=== PATIENT | female | born 1985 | race African-American/Black ===

== ENCOUNTER 2016-08-24 15:47 | Emergency (ER) | payer MEDICAID ==
[~2016-08-24] VITALS: Ht 160 cm; Wt 75.0 kg
[~2016-08-24 15:47] MED LIST: MOTRIN 600600 MG/TAB PO; NO HOME MEDICATIONS; PERCOCET 325 MG1 TA2 PO; ZOFRAN 4MG T4 MG/TAB PO
[2016-08-24 15:48] VITALS: BP 138/84; TEMP 98.1
[2016-08-24 16:23] LABS: BASO # 0.1 (0.0-0.2); BASO % 0.7 % (0.0-2.0); EOS # 0.1 (0.0-0.7); EOS % 1.3 % (0-4.0); GRAN # 5.9 (1.4-6.5); GRAN % 64.1 % (42.2-75.2); HEMOGLOBIN 12.7 g/dl (12.5-16.0); LYMPH # 2.5 (1.2-3.4); LYMPH % 26.9 % (20.0-51.0); MEAN CELL VOLUME 89 fl (80.0-100.0); MEAN CORPUSCULAR HEMOGLOBIN 31 pg (27.0-31.0); MEAN CORPUSCULAR HGB CONC 35 g/dl (33.0-37.0); MEAN PLATELET VOLUME 9.9 fl (7.4-10.4); MONO # 0.6 (0.1-0.6); MONO % 6.6 % (1.7-9.3); PLATELET COUNT 266 K/mm3 (130-400); RED BLOOD COUNT 4.08 M/mm3 (4.10-5.30); WHITE BLOOD COUNT 9.1 K/mm3 (4.8-10.8)
[2016-08-24 16:29] LABS: HEMATOCRIT 36.3 % (37.0-47.0)
[2016-08-24 16:38] LABS: CALCIUM 9.3 mg/dL (8.4-10.2); CREATININE, serum 0.72 mg/dL (0.52-1.25); POTASSIUM 3.7 mmol/L (3.4-5.0)
[2016-08-24 17:40] VITALS: PULSE 70
== END 2016-08-24 17:40 | disposition home or self-care (01) ==
LOC: COL.ER 15:47
PROVIDERS: Physician Assistant
DX: O20.0 Threatened abortion (principal); Z3A.01 Less than 8 weeks gestation of pregnancy; O99.341 Other mental disorders complicating pregnancy, first trimester; F41.9 Anxiety disorder, unspecified; F32.9 Major depressive disorder, single episode, unspecified; F90.9 Attention-deficit hyperactivity disorder, unspecified type
CPT/HCPCS: J7030

== ENCOUNTER 2016-09-24 17:23 | Emergency (ER) | payer MEDICAID ==
[~2016-09-24] VITALS: Ht 160 cm; Wt 77.3 kg
[2016-09-24 17:46] VITALS: TEMP 98
[2016-09-24] MEDS ORDERED: ZOFRAN8 MG PO (17:48)
[2016-09-24] MEDS ORDERED: PRENATAL (17:48)
[2016-09-24] MEDS ORDERED: REGLAN 10MG10 MG/TAB PO (20:11)
[2016-09-24 20:29] VITALS: BP 116/61; PULSE 62
== END 2016-09-24 20:29 | disposition home or self-care (01) ==
LOC: COL.ER 17:23
DX: O99.351 Diseases of the nervous system complicating pregnancy, first trimester (principal); G43.909 Migraine, unspecified, not intractable, without status migrainosus; Z3A.11 11 weeks gestation of pregnancy
CPT/HCPCS: J1200; J2765; J7120

== ENCOUNTER 2016-10-06 16:36 | Emergency (ER) | payer MEDICAID ==
[~2016-10-06] VITALS: Ht 160 cm; Wt 77.3 kg
[~2016-10-06 16:36] MED LIST changes: +PRENATAL; +REGLAN 10MG10 MG/TAB PO; +ZOFRAN8 MG PO
[2016-10-06 16:37] VITALS: BP 120/62; TEMP 98
[2016-10-06 17:29] LABS: PH 6 (5-8); SQUAMOUS EPITHELIAL 0-2 /hpf; URINE APPEARANCE Clear; URINE BACTERIA None Seen /hpf; URINE BILIRUBIN Negative (NEGATIVE); URINE BLOOD Negative (NEGATIVE); URINE COLOR Yellow; URINE GLUCOSE Negative (NEGATIVE); URINE KETONE Trace (NEGATIVE); URINE RBC 0-2 /hpf; URINE WBC 0-2 /hpf
[2016-10-06] MEDS ORDERED: PHENERGAN 25 TA25 MG PO (17:33)
[2016-10-06 19:40] VITALS: PULSE 58
== END 2016-10-06 19:44 | disposition home or self-care (01) ==
LOC: COL.ER 16:36
PROVIDERS: Emergency Medicine
DX: O21.0 Mild hyperemesis gravidarum (principal); Z3A.13 13 weeks gestation of pregnancy
CPT/HCPCS: J2550; J7030

== ENCOUNTER 2016-11-24 14:53 | Emergency (ER) | payer MEDICAID ==
[~2016-11-24] VITALS: Ht 160 cm; Wt 77.3 kg
[~2016-11-24 14:53] MED LIST changes: +PHENERGAN 25 TA25 MG PO
[2016-11-24 14:56] VITALS: TEMP 897.7
[2016-11-24 15:41] LABS: BASO % 0.3 % (0.0-2.0); EOS # 0.1 (0.0-0.7); EOS % 0.5 % (0-4.0); GRAN # 8.6 (1.4-6.5); GRAN % 74.5 % (42.2-75.2); LYMPH # 2.3 (1.2-3.4); LYMPH % 19.9 % (20.0-51.0); MEAN CELL VOLUME 90 fl (80.0-100.0); MEAN CORPUSCULAR HGB CONC 35 g/dl (33.0-37.0); MEAN PLATELET VOLUME 10.2 fl (7.4-10.4); MONO # 0.5 (0.1-0.6); MONO % 4.4 % (1.7-9.3); PLATELET COUNT 256 K/mm3 (130-400); RED BLOOD COUNT 3.55 M/mm3 (4.10-5.30); REDCELL DISTRIBUTION WIDTH-CV 12.8 % (11.5-14.5); WHITE BLOOD COUNT 11.5 K/mm3 (4.8-10.8)
[2016-11-24 15:44] LABS: PH 5 (5-8); URINE APPEARANCE Hazy; URINE BACTERIA Rare /hpf; URINE BILIRUBIN Negative (NEGATIVE); URINE BLOOD Negative (NEGATIVE); URINE COLOR Yellow; URINE GLUCOSE Negative (NEGATIVE); URINE KETONE 2+ (NEGATIVE); URINE RBC 0-2 /hpf; URINE UROBILINOGEN Negative (NEGATIVE); URINE WBC 0-2 /hpf
[2016-11-24 15:44] LABS: HEMATOCRIT 32.1 % (37.0-47.0); HEMOGLOBIN 11.2 g/dl (12.5-16.0); MEAN CORPUSCULAR HEMOGLOBIN 32 pg (27.0-31.0)
[2016-11-24 15:48] LABS: ADJUSTED CALCIUM 9.3 mg/dL (8.4-10.2); ALBUMIN 3.9 gm/dL (3.5-5.0); BILIRUBIN,TOTAL 0.3 mg/dL (0.0-1.0); CALCIUM 9.2 mg/dL (8.4-10.2); CREATININE, serum 0.63 mg/dL (0.52-1.25); POTASSIUM 3.7 mmol/L (3.4-5.0); TOTAL PROTEIN 7.2 gm/dL (6.4-8.2)
[2016-11-24] MEDS ORDERED: PHENERGAN 25 TA25 MG PO (17:27)
[2016-11-24 17:38] VITALS: BP 128/60; PULSE 74
== END 2016-11-24 17:39 | disposition home or self-care (01) ==
LOC: COL.ER 14:53
PROVIDERS: Emergency Medicine
DX: O21.9 Vomiting of pregnancy, unspecified (principal); Z3A.20 20 weeks gestation of pregnancy
CPT/HCPCS: J1200; J2405; J2550; J7030

== ENCOUNTER 2017-02-18 14:46 | Inpatient (IN) | payer MEDICAID ==
[~2017-02-18] VITALS: Ht 162.6 cm; Wt 84.1 kg
[2017-04-03] MEDS ORDERED: ACTIGALL 300MG300 MG PO (13:52)
[2017-04-03] MEDS ORDERED: ATARAX50 MG PO (13:53)
[2017-04-03] MEDS ORDERED: PRILOSEC 20MG20 MG PO (13:53)
[2017-04-03] MEDS ORDERED: LEXAPRO 10MG10 MG PO (13:53)
[2017-04-09] VITALS (26 sets, daily range): BP systolic 89–144; BP diastolic 50–88; PULSE 55–104; TEMP 97.3–98.2
[2017-04-09] MEDS ORDERED: LEXAPRO 5MG5 MG PO (07:36)
[2017-04-09 08:09] LABS: BASO % 0.4 % (0.0-2.0); EOS # 0.1 (0.0-0.7); EOS % 0.7 % (0-4.0); GRAN # 4.6 (1.4-6.5); GRAN % 60.6 % (42.2-75.2); LYMPH # 2.4 (1.2-3.4); MEAN CELL VOLUME 89 fl (80.0-100.0); MEAN CORPUSCULAR HGB CONC 33 g/dl (33.0-37.0); MEAN PLATELET VOLUME 11.2 fl (7.4-10.4); MONO # 0.5 (0.1-0.6); PLATELET COUNT 234 K/mm3 (130-400); RED BLOOD COUNT 3.77 M/mm3 (4.10-5.30); REDCELL DISTRIBUTION WIDTH-CV 12.5 % (11.5-14.5)
[2017-04-09 08:11] LABS: HEMATOCRIT 33.5 % (37.0-47.0); HEMOGLOBIN 11.1 g/dl (12.5-16.0); MEAN CORPUSCULAR HEMOGLOBIN 29 pg (27.0-31.0)
[2017-04-10 03:39] VITALS: BP 112/71; PULSE 58; TEMP 97.9
[2017-04-10] MEDS ORDERED: PERCOCET 325 MG1 TA2 PO (07:24)
[2017-04-10] MEDS ORDERED: IBU800 M1 PO (07:24)
[2017-04-10 08:09] VITALS: BP 106/75; PULSE 58; TEMP 98.3
== END 2017-04-10 14:05 | disposition home or self-care (01) | DRG 775 ==
LOC: LDR → OB 04-09 07:04 → LDR 04-09 07:04 → OB 04-09 15:00 → LDR 04-15 14:45
PROVIDERS: Obstetrics & Gynecology
PROC: 10E0XZZ Delivery of Products of Conception, External Approach (ICD-10-PCS; principal; 2017-04-09)
PROC: 3E033VJ Introduction of Other Hormone into Peripheral Vein, Percutaneous Approach (ICD-10-PCS; 2017-04-09)
DX: O26.62 Liver and biliary tract disorders in childbirth (principal); K83.1 Obstruction of bile duct; O69.81X0 Labor and delivery complicated by cord around neck, without compression, not applicable or unspecified; Z3A.39 39 weeks gestation of pregnancy; Z37.0 Single live birth
CPT/HCPCS: J2405; J2590; J2795; J7120

== ENCOUNTER 2017-04-03 13:31 | Outpatient (CLI) | payer MEDICAID ==
[~2017-04-03] VITALS: Ht 162.6 cm; Wt 85.0 kg
[2017-04-03 13:45] VITALS: BP 128/82; PULSE 98; TEMP 98.2
[2017-04-03] MEDS ORDERED: ACTIGALL 300MG300 MG PO (13:52)
[2017-04-03] MEDS ORDERED: ATARAX50 MG PO (13:53)
[2017-04-03] MEDS ORDERED: LEXAPRO 10MG10 MG PO (13:53)
[2017-04-03] MEDS ORDERED: PRILOSEC 20MG20 MG PO (13:53)
== END 2017-04-03 14:50 | disposition home or self-care (01) ==
LOC: LDRO 13:31
DX: O62.9 Abnormality of forces of labor, unspecified (principal); Z3A.38 38 weeks gestation of pregnancy